=== PATIENT | female | born 1980 | race African-American/Black ===

== ENCOUNTER 2016-10-07 18:29 | Emergency (ER) | payer MEDICARE, OTHER ==
[~2016-10-07] VITALS: Ht 180.3 cm; Wt 135.9 kg
[~2016-10-07 18:29] MED LIST: CYCL1TAB29 PO
[2016-10-07 18:32] VITALS: BP 119/83; PULSE 85; RESP 20; TEMP 98.4; O2SAT 97
--- NOTE | 2016-10-07 23:32 | PD ---
HPI Chief Complaint: Bioinformaticist Problem/Complaint Time Seen by Provider: 23:21 Travel History International Travel<30 days: No Contact w/Intl Traveler<30days: No Traveled to known affect area: No History of Present Illness HPI 36-year-old black female presents to emergency department complaining of razor burn to her vaginal area. She states that the area has become increasingly red , tender and swollen. She has used multiple [id number] preparations without relief. She states that this is even cause her to have some dysuria. She also goes on to state that she has had cold symptoms which has consisted of fever and chills, congestion, myalgias, arthralgias and general malaise. She states that her last menstrual. Was only 4 days and very light. She is concerned that she may be . She states that she has had a tubal ligation in the past but since then she has had an ectopic followed by a normal . She denies any vaginal discharge. 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 ) Musculoskeletal: Yes (FIBROMYALGIA) Tetanus Vaccination: < 5 Years ?: Not LMP: 08/2016 : 8 Para: 7 Miscarriage: 0 : 0 Ectopic : Yes Tubal Ligation: Yes Past Surgical History Narrative Surgical Appendectomy, Cholecystectomy, tubal ligation Appendectomy: Yes Cholecystectomy: Yes Oral Surgery: Yes Pacemaker: No Social History Alcohol Use: Yes (OCCASIONALLY) Tobacco Use: Yes (1/2 PPD) Substance Use: No Allergies-Medications (Allergen,Severity, Reaction): Coded Allergies: Ibuprofen (Verified Adverse Reaction, Severe, NOT ALLOWED DUE TO KIDNEY FUNCTION, 09/03/16) "NOT ALLOWED TO TAKE DUE TO KIDNEY FUNCTION" Reported Meds & Prescriptions Reported Meds & Active Scripts Active Hydrocortisone Topical 2.5% Oint 1 Applic TOPICAL TID Bactrim DS (Sulfamethoxazole-Trimethoprim) 800-160 Mg Tab 1 Tab PO BID Flexeril (Cyclobenzaprine HCl) 10 Mg Tab 10 Mg PO TID PRN Reported Ambien (Zolpidem Tartrate) 5 Mg Tab 5 Mg PO HS PRN Trazodone (Trazodone HCl) 50 Mg Tab 50 Mg PO HS Cymbalta DR (Duloxetine HCl) 20 Mg Capdr 20 Mg PO DAILY Plaquenil (Hydroxychloroquine Sulfate) 200 Mg Tab 200 Mg PO BID Take with food Tizanidine (Tizanidine HCl) 2 Mg Tab 2 Mg PO TID Diclofenac Sodium DR (Diclofenac Sodium) 25 Mg Tabdr 25 Mg PO TID Gabapentin 300 Mg Cap 300 Mg PO BID Review of Systems Except as stated in HPI: all other systems reviewed are Neg Physical Exam Narrative GENERAL: Well-developed, well-nourished in no acute distress. Nontoxic appearing. The patient is examined with the nurse present. HEAD: Normocephalic, atraumatic. EYES: Pupils equal round and reactive. Extraocular motions intact. No scleral icterus. No injection or drainage. ENT: TMs clear without erythema. The external auditory canals clear. Nose: clear . Posterior pharynx is pink and moist. No tonsillar edema or exudate. Uvula midline. Airway patent. NECK: Trachea midline.Supple, nontender, moves head freely. No central bony tenderness or spasm. CARDIOVASCULAR: Regular rate and rhythm without murmurs, gallops, or rubs. RESPIRATORY: Clear to auscultation. Breath sounds equal bilaterally. No wheezes , rales, or rhonchi. GASTROINTESTINAL: Abdomen soft, non-tender, nondistended. No hepato-splenomegaly , or palpable masses. No guarding. EXTREMITIES: No clubbing, cyanosis, or edema. No joint tenderness, effusion, or edema noted. BACK: Nontender without deformity or crepitance. No flank tenderness. : The patient has irritation, erythema and mild edema of the labia majora and perineal region. No discharge. No vesicles or blistering. Data Data Last Documented VS Vital Signs Date Time Temp Pulse Resp B/P Pulse Ox O2 Delivery O2 Flow Rate FiO2 10/07/16 18:32 98.4 85 20 119/83 97 Room Air Orders Ed Urine Pregnancytest Poc (10/07/16 23:17) Sulfamet-Trimeth Ds 800-160 Mg (Bactrim (10/08/16 00:00) MDM Medical Decision Making Medical Screen Exam Complete: Yes Emergency Medical Condition: Yes Medical Record Reviewed: Yes Interpretation(s) Patient's urine icon is negative Differential Diagnosis Differential diagnoses: Herpes, abrasion, cellulitis, contact dermatitis, URI, bronchitis, UTI, influenza Narrative Course Patient has localizing irritation to the perineal region and labia majora. She' ll be placed on Bactrim DS, 2% hydrocortisone cream and she is advised to use [id number] Vagisil. This is an influenza-like illness, contact dermatitis Diagnosis Primary Impression: Influenza-like illness Additional Impression: Contact dermatitis Qualified Code: L25.9 - Contact dermatitis, unspecified contact dermatitis type, unspecified trigger Patient Instructions: General Instructions Additional Instructions: Rest. Wash the area with soap and water twice daily. Tylenol for fever or pain. Benadryl 50 mg every 4-6 hours for the next 2-4 days. Bactrim DS, hydrocortisone cream. Use [id number] VAGASIL 4 times daily. Follow-up with your doctor in the next 2 days for recheck. Med/Other Pt SpecificInfo: Prescription(s) given, Wound Care Scripts Hydrocortisone Topical 2.5% Oint1 Applic TOPICAL TID #15 GM Ref 0 Prov:Ortiz Cullen MD 10/07/16 Sulfamethoxazole-Trimethoprim (Bactrim DS)800-160 Mg Tab1 Tab PO BID #14 TAB Prov:Ortiz Cullen MD 10/07/16 Disposition: 01 DISCHARGE HOME Condition: Stable Oren Wang Oct 07, 2016 23:32
[2016-10-07] MEDS ORDERED: HYDR2.5O TOPICAL (23:33)
[2016-10-07] MEDS ORDERED: BACT800T5 PO (23:33)
[2016-10-07] MEDS ORDERED: DICL25 PO (23:54)
[2016-10-07] MEDS ORDERED: GABA300C5 PO (23:54)
[2016-10-07] MEDS ORDERED: PLAQ200T PO (23:54)
[2016-10-07] MEDS ORDERED: TIZA2TAB PO (23:54)
[2016-10-07] MEDS ORDERED: DULO20 PO (23:54)
[2016-10-07] MEDS ORDERED: AMBI5TAB PO (23:54)
[2016-10-07] MEDS ORDERED: TRAZ50TA12 PO (23:54)
[2016-10-08] MEDS ORDERED: SULFAMETHOXAZOLE-TRIMETHOPRIM DS 800-160 MG TAB PO ONE
[2016-10-08] MEDS ORDERED: diphenhydrAMINE HCL 50 MG CAP PO ONE (00:15)
== END 2016-10-08 00:32 | disposition home or self-care (01) ==
LOC: NEPB 18:29
DX: L25.9 Unspecified contact dermatitis, unspecified cause (principal); R50.9 Fever, unspecified; R30.0 Dysuria; M79.1 Myalgia; J45.909 Unspecified asthma, uncomplicated; M32.9 Systemic lupus erythematosus, unspecified; F17.210 Nicotine dependence, cigarettes, uncomplicated
CPT/HCPCS: 84703; 99283; Q0163

== ENCOUNTER 2016-12-16 12:21 | Emergency (ER) | payer MEDICARE, OTHER ==
[~2016-12-16] VITALS: Ht 180.3 cm; Wt 128.0 kg
[~2016-12-16 12:21] MED LIST changes: +AMBI5TAB PO; +BACT800T5 PO; +DICL25 PO; +DULO20 PO; +GABA300C5 PO; +HYDR2.5O TOPICAL; +PLAQ200T PO; +TIZA2TAB PO; +TRAZ50TA12 PO
[2016-12-16 12:23] VITALS: BP 114/70; PULSE 78; RESP 20; TEMP 98.1; O2SAT 100
--- NOTE | 2016-12-16 13:21 | PD ---
Physical Exam Date Seen by Provider: Dec 16, 2016 Time Seen by Provider: 13:19 Narrative 36 YOBF SLIP AND FALL SAT AT A BAR. H/O LUPUS . PAIN IN L KNEE AND BACK. NO LOC. NO NECK OR BACK PAIN. VSS. AWAITING BED PLACEMENT. Data Data Last Documented VS Vital Signs Date Time Temp Pulse Resp B/P Pulse Ox O2 Delivery O2 Flow Rate FiO2 12/16/16 12:23 98.1 78 20 114/70 100 Room Air [facility] Medical Record Reviewed: Yes Supervised Visit with BOGDAN: Yes Oren Wang Dec 16, 2016 13:21
--- NOTE | 2016-12-16 14:06 | PD ---
HPI Chief Complaint: Musculoskeletal Complaint Time Seen by Provider: 14:05 Travel History International Travel<30 days: No Contact w/Intl Traveler<30days: No Traveled to known affect area: No History of Present Illness HPI 36-year-old female presents emergency Department with complaint of left knee pain and low back pain after a slip and fall on Friday while at the bar. Denies hitting her head or loss of consciousness. Has been ambulatory on the affected extremity since the fall. Denies encopresis, incontinence, saddle anesthesias. Denies paresthesias, loss of sensation, decreased range of motion , decreased strength to bilateral lower extremities. Denies fever, chills, nausea, vomiting, abdominal pain, change in urine or stool. Has history of chronic back pain. Is requesting injections for her back pain. Has taken Percocet with no minimal relief of symptoms. Has history of lupus and asthma. Allergies to ibuprofen. No other modifying factors or associated signs and symptoms. PFSH Past Medical History Arthritis: Yes (RHEUMATOID ARTHRITIS) Asthma: Yes Autoimmune Disease: Yes (LUPUS) Anxiety: Yes Depression: Yes Diminished Hearing: No Fibromyalgia: Yes Genitourinary: Yes (KIDNEY DAMAGE FROM LAST ) Musculoskeletal: Yes (FIBROMYALGIA) : 8 Para: 7 Miscarriage: 0 : 0 Ectopic : Yes Tubal Ligation: Yes Past Surgical History Appendectomy: Yes Cholecystectomy: Yes Oral Surgery: Yes Pacemaker: No Social History Alcohol Use: Yes (OCCASIONALLY) Tobacco Use: Yes (1/2 PPD) Substance Use: No Allergies-Medications (Allergen,Severity, Reaction): Coded Allergies: Ibuprofen (Verified Adverse Reaction, Severe, NOT ALLOWED DUE TO KIDNEY FUNCTION, 12/16/16) "NOT ALLOWED TO TAKE DUE TO KIDNEY FUNCTION" Reported Meds & Prescriptions Reported Meds & Active Scripts Active Acetaminophen 500 Mg Tab 500 Mg PO Q6H PRN Hydrocortisone Topical 2.5% Oint 1 Applic TOPICAL TID Bactrim DS (Sulfamethoxazole-Trimethoprim) 800-160 Mg Tab 1 Tab PO BID Flexeril (Cyclobenzaprine HCl) 10 Mg Tab 10 Mg PO TID PRN Reported Ambien (Zolpidem Tartrate) 5 Mg Tab 5 Mg PO HS PRN Trazodone (Trazodone HCl) 50 Mg Tab 50 Mg PO HS Cymbalta DR (Duloxetine HCl) 20 Mg Capdr 20 Mg PO DAILY Plaquenil (Hydroxychloroquine Sulfate) 200 Mg Tab 200 Mg PO BID Take with food Tizanidine (Tizanidine HCl) 2 Mg Tab 2 Mg PO TID Diclofenac Sodium DR (Diclofenac Sodium) 25 Mg Tabdr 25 Mg PO TID Gabapentin 300 Mg Cap 300 Mg PO BID Review of Systems Except as stated in HPI: all other systems reviewed are Neg Physical Exam Narrative GENERAL: Well-nourished, well-developed female patient, in no acute distress SKIN: Warm and dry. HEAD: Atraumatic. Normocephalic. EYES: Pupils equal and round. No scleral icterus. No injection or drainage. ENT: Mucosa pink and moist. Airway patent. NECK: Trachea midline. CARDIOVASCULAR: Regular rate. RESPIRATORY: No accessory muscle use. GASTROINTESTINAL: Obese. MUSCULOSKELETAL: Left knee is without erythema; with mild edema and ecchymosis noted to the anterior aspect; with tenderness on palpation; with full range of motion to 90; joint stable with negative drawer test; no obvious deformities. Left lower extremity supple and non-tense with 2+ pedal pulses and sensory intact and without erythema or edema. Bilateral lower extremities supple and non-tense with 2+ pedal pulses and sensory intact; with full range of motion and 5/5 strength. Active dorsiflexion and extension of bilateral feet. Bilateral straight leg raise is negative for low back pain. Ambulatory in the room with normal gait. Sitting up in bed at 90. No obvious deformities. No clubbing. No cyanosis. No edema. BACK: No midline point tenderness on palpation of the lumbar spine. Tenderness on palpation of bilateral iliosacral area. No obvious deformities. NEUROLOGICAL: Awake and alert. Oriented 3. No obvious cranial nerve deficits. Motor grossly within normal limits. Normal speech. Moves all extremities. 5/5 strength to all extremities. Sensory intact. PSYCHIATRIC: Appropriate mood and affect; insight and judgment normal. Data Data Last Documented VS Vital Signs Date Time Temp Pulse Resp B/P Pulse Ox O2 Delivery O2 Flow Rate FiO2 12/16/16 12:23 98.1 78 20 114/70 100 Room Air Orders Knee, Complete (4vws) (12/16/16 14:04) Ketorolac Inj (Toradol Inj) (12/16/16 14:15) Orphenadrine Inj (Norflex Inj) (12/16/16 14:15) Crutches (12/16/16 16:13) Splint Or Brace Apply/Monitor (12/16/16 16:13) MDM Medical Decision Making Medical Screen Exam Complete: Yes Emergency Medical Condition: Yes Medical Record Reviewed: Yes Differential Diagnosis Fall, low back strain, acute exacerbation of chronic low back pain, knee contusion, patellar fracture Narrative Course 36-year-old female with left knee injury and low back strain after a mechanical slip and fall on Friday. Denies hitting her head or loss of consciousness. Patient requesting injections for low back pain. She has history of chronic back pain. Toradol and Norflex ordered. Left knee x-ray ordered. 1606: Left knee x-ray concludes: Knee X-Ray 12/16/16 1404 Signed Impressions: Service Date/Time: Friday, December 16, 2016 14:38 - CONCLUSION: 1. Small, well-corticated bone fragment along the anterior aspect of the tibia adjacent to the knee joint suggesting old avulsion. Hi Steinberg MD Patient has no tenderness over the anterior aspect of the tibia and there is no clinical correlation to x-ray findings. Altaf bandage applied to the left knee and crutches provided for support. Instructed patient to follow up with orthopedics. Patient verbalizes understanding and agreement with treatment plan. Patient is medically cleared and stable for discharge. Discussed reasons to return to the emergency department. Instructed patient to follow up with primary care provider. Patient agrees with treatment plan. The patients vital signs are stable and the patient is stable for outpatient follow-up and treatment. Patient discharged home, stable and in no acute distress. Diagnosis Primary Impression: Low back strain Qualified Code: S39.012A - Low back strain, initial encounter Additional Impression: Contusion of left knee Qualified Code: S80.02XA - Contusion of left knee, initial encounter Referrals: Orthopedist Primary Care Physician Patient Instructions: Acute Low Back Pain (ED), Contusion in Adults (ED), General Instructions, Knee Pain (ED), Low Back Strain (ED) Departure Forms: Tests/Procedures, Work Release Enter return to work date: Dec 18, 2016 Additional Instructions: Tylenol or ibuprofen as directed and as needed to reduce pain Robaxin as prescribed for muscle spasms Get adequate rest Ice and/or heating pad to affected area to reduce pain Avoid aggravating activity; increase activity as tolerated Follow-up with primary care provider Return to the emergency department immediately with worsening symptoms Tylenol or ibuprofen as needed and as directed to reduce pain and inflammation Rest, ice, compress, and elevate extremity to decrease pain and inflammation Knee Brace for support Crutches for support Avoid aggravating activity; increase activity as tolerated Follow-up with primary care provider Return to the emergency department immediately with worsening symptoms Med/Other Pt SpecificInfo: Prescription(s) given Scripts Acetaminophen 500 Mg [id number] Mg PO Q6H PRN (PAIN SCALE 1 TO 10) #20 TAB Ref 0 Prov:Maria L Hinds 12/16/16 Disposition: 01 DISCHARGE HOME Condition: Stable Maria L Hinds Dec 16, 2016 14:06
[2016-12-16] MEDS ORDERED: ORPHENADRINE INJ 60 MG/2 ML AMP IM ONE (14:15)
[2016-12-16] MEDS ORDERED: KETOROLAC TROMETHAMINE 60 MG/2 ML (IM) VIAL IM ONE (14:15)
--- NOTE | 2016-12-16 15:50 | RADRPT ---
EXAM DATE/TIME: 12/16/2016 14:38 [facility] COMPARISON: SPINE LUMBAR COMPLETE W/OBLIQ, July 22, 2015, 10:30. INDICATIONS : Fell 2 night's ago at a night club. MEDICAL HISTORY : None. SURGICAL HISTORY : None. ENCOUNTER: Initial ACUITY: 2 days PAIN SCORE: 8/10 LOCATION: Left knee FINDINGS: There is a small well-corticated bone fragment seen at the anterior aspect of the tibia which is prob ably old. Patient should be examined to ensure this is not a direct site of pain as this could repres ent an avulsion but again, the well-corticated nature of this would suggest it is old. The remainder the osseous structures are intact. There is no significant joint effusion. CONCLUSION: 1. Small, well-corticated bone fragment along the anterior aspect of the tibia adjacent to the knee j oint suggesting old avulsion. Hi Steinberg MD on December 16, 2016 at 15:47 Board Certified Radiologist. This report was verified electronically.
[2016-12-16] MEDS ORDERED: ACET500T3 PO (16:13)
== END 2016-12-16 16:24 | disposition home or self-care (01) ==
LOC: NETRI 12:21
DX: S39.012A Strain of muscle, fascia and tendon of lower back, initial encounter (principal); S80.02XA Contusion of left knee, initial encounter; W01.0XXA Fall on same level from slipping, tripping and stumbling without subsequent striking against object, initial encounter; Y92.89 Other specified places as the place of occurrence of the external cause
CPT/HCPCS: 73564; 96372; 99283; E0113; J1885

== ENCOUNTER 2016-12-22 00:39 | Emergency (ER) | payer MEDICARE, OTHER ==
[~2016-12-22] VITALS: Ht 180.3 cm; Wt 130.0 kg
[~2016-12-22 00:39] MED LIST changes: +ACET500T3 PO
[2016-12-22 00:41] VITALS: BP 129/85; PULSE 56; RESP 18; TEMP 98.1; O2SAT 100
[2016-12-22] MEDS ORDERED: SODIUM CHLORIDE 0.9% FLUSH 10 ML FLUSH IV FLUSH PRN ×2 (01:15→01:45)
[2016-12-22 01:34] LABS: AUTOMATED NEUTROPHIL # 2.2 TH/MM3 (1.8-7.7); BASOPHIL % 0.7 % (0.0-2.0); EOSINOPHIL # 0.4 TH/MM3 (0-0.4); EOSINOPHIL % 6.4 % (0.0-4.0); HEMATOCRIT 31.5 % (35.0-46.0); HEMO FLAGS DIFF FINAL; LYMPH % 49.3 % (9.0-44.0); LYMPHOCYTE # 2.9 TH/MM3 (1.0-4.8); MEAN CELL VOLUME 79.4 FL (80.0-100.0); MEAN CORPUSCULAR HGB CONC 32.8 % (32.0-36.0); MONO % 6.9 % (0.0-8.0); NEUT % 36.7 % (16.0-70.0); PLATELET COUNT 321 TH/MM3 (150-450); RED BLOOD COUNT 3.96 MIL/MM3 (4.00-5.30); RED CELL DISTRIBUTION WIDTH 16.5 % (11.6-17.2); WHITE BLOOD COUNT 5.9 TH/MM3 (4.0-11.0)
[2016-12-22 01:35] LABS: BACTERIA, URINE RARE /hpf; BLOOD, URINE NEG (NEG); COMMENT (UR) CULT NOT INDICATED; CULTURE IF INDICATED CULT NOT INDICATED; GLUCOSE,URINE NEG (NEG); KETONE, URINE NEG (NEG); MUCUS URINE FEW /lpf (OCC); NITRITE,URINE NEG (NEG); SQUAMOUS EPITHELIAL CELL URINE 9 /hpf (0-5); URINE COLOR YELLOW (YELLW/STRAW)
--- NOTE | 2016-12-22 01:41 | PD ---
HPI Chief Complaint: Abdominal Pain Time Seen by Provider: 01:21 Travel History International Travel<30 days: No Contact w/Intl Traveler<30days: No Traveled to known affect area: No History of Present Illness HPI So 36 year-old woman who presents to the emergency department complaining of right upper quadrant abdominal pain 4 days. She did feel like when she had gallbladder problems before. Initially she had some nausea vomiting but none now. She is no aggravating or alleviating factors. Pains are not affected by eating. She's never had gastritis or ulcer disease problems in the past. No urinary changes. No change in her vomitus. No chest pain or trouble breathing. No history of kidney stones. History Past Medical History Narrative Medical Lupus Rheumatoid arthritis Degenerative disc disease "Damaged kidneys" Anxiety and depression LMP: 12/02/16 : 8 Para: 7 Social History Alcohol Use: Yes (OCCASIONALLY) Tobacco Use: Yes (1/2 PPD) Allergies-Medications (Allergen,Severity, Reaction): Coded Allergies: Ibuprofen (Verified Adverse Reaction, Severe, NOT ALLOWED DUE TO KIDNEY FUNCTION, 12/22/16) "NOT ALLOWED TO TAKE DUE TO KIDNEY FUNCTION" Reported Meds & Prescriptions Reported Meds & Active Scripts Active Acetaminophen 500 Mg Tab 500 Mg PO Q6H PRN Hydrocortisone Topical 2.5% Oint 1 Applic TOPICAL TID Bactrim DS (Sulfamethoxazole-Trimethoprim) 800-160 Mg Tab 1 Tab PO BID Flexeril (Cyclobenzaprine HCl) 10 Mg Tab 10 Mg PO TID PRN Reported Ambien (Zolpidem Tartrate) 5 Mg Tab 5 Mg PO HS PRN Trazodone (Trazodone HCl) 50 Mg Tab 50 Mg PO HS Cymbalta DR (Duloxetine HCl) 20 Mg Capdr 20 Mg PO DAILY Plaquenil (Hydroxychloroquine Sulfate) 200 Mg Tab 200 Mg PO BID Take with food Tizanidine (Tizanidine HCl) 2 Mg Tab 2 Mg PO TID Diclofenac Sodium DR (Diclofenac Sodium) 25 Mg Tabdr 25 Mg PO TID Gabapentin 300 Mg Cap 300 Mg PO BID Review of Systems Except as stated in HPI: all other systems reviewed are Neg Physical Exam Narrative GENERAL: Well-appearing 36 year-old woman, no acute distress. SKIN: Focused skin assessment warm/dry. HEAD: Atraumatic. Normocephalic. CARDIOVASCULAR: Regular rate and rhythm. No murmur appreciated. RESPIRATORY: No accessory muscle use. Clear to auscultation. Breath sounds equal bilaterally. GASTROINTESTINAL: Abdomen soft, non-tender, nondistended. Hepatic and splenic margins not palpable. MUSCULOSKELETAL: No obvious deformities. No edema. NEUROLOGICAL: Awake and alert. No obvious cranial nerve deficits. Motor grossly within normal limits. Normal speech. PSYCHIATRIC: Appropriate mood and affect; insight and judgment normal. Data Data Last Documented VS Vital Signs Date Time Temp Pulse Resp B/P Pulse Ox O2 Delivery O2 Flow Rate FiO2 12/22/16 00:41 98.1 56 18 129/85 100 Room Air Orders Complete Blood Count With Diff (12/22/16 01:07) Comprehensive Metabolic Panel (12/22/16 01:07) Lipase (12/22/16 01:07) Urinalysis - C+S If Indicated (12/22/16 01:07) Iv Access Insert/Monitor (12/22/16 01:07) NPO (12/22/16 01:07) Sodium Chloride 0.9% Flush (Ns Flush) (12/22/16 01:15) Ed Urine Pregnancytest Poc (12/22/16 01:07) Ct Abd/Pel W/O Iv Contrast (12/22/16 01:32) Ecg Monitoring (12/22/16 01:32) Oximetry (12/22/16 01:32) Sodium Chloride 0.9% Flush (Ns Flush) (12/22/16 01:45) Sodium Chlor 0.9% 1000 Ml Inj (Ns 1000 M (12/22/16 01:45) Ondansetron Inj (Zofran Inj) (12/22/16 01:45) Acetaminophen (Tylenol) (12/22/16 01:45) Labs Laboratory Tests Test 12/22/16 12/22/16 01:10 01:15 Urine Color YELLOW Urine Turbidity HAZY Urine pH 6.0 Urine Specific [place] 1.016 Urine Protein NEG mg/dL Urine Glucose (UA) NEG mg/dL Urine Ketones NEG mg/dL Urine Occult Blood NEG Urine Nitrite NEG Urine Bilirubin NEG Urine Urobilinogen 2.0 MG/DL Urine Leukocyte Esterase TRACE Urine RBC 1 /hpf Urine WBC 4 /hpf Urine Squamous Epithelial 9 /hpf Cells Urine Bacteria RARE /hpf Urine Mucus FEW /lpf Microscopic Urinalysis Comment CULT NOT INDICATED White Blood Count 5.9 TH/MM3 Red Blood Count 3.96 MIL/MM3 Hemoglobin 10.3 GM/DL Hematocrit 31.5 % Mean Corpuscular Volume 79.4 FL Mean Corpuscular Hemoglobin 26.0 PG Mean Corpuscular Hemoglobin 32.8 % Concent Red Cell Distribution Width 16.5 % Platelet Count 321 TH/MM3 Mean Platelet Volume 7.5 FL Neutrophils (%) (Auto) 36.7 % Lymphocytes (%) (Auto) 49.3 % Monocytes (%) (Auto) 6.9 % Eosinophils (%) (Auto) 6.4 % Basophils (%) (Auto) 0.7 % Neutrophils # (Auto) 2.2 TH/MM3 Lymphocytes # (Auto) 2.9 TH/MM3 Monocytes # (Auto) 0.4 TH/MM3 Eosinophils # (Auto) 0.4 TH/MM3 Basophils # (Auto) 0.0 TH/MM3 CBC Comment DIFF FINAL Differential Comment Sodium Level 139 MEQ/L Potassium Level 3.4 MEQ/L Chloride Level 105 MEQ/L Carbon Dioxide Level 28.5 MEQ/L Anion Gap 6 MEQ/L Blood Urea Nitrogen 7 MG/DL Creatinine 1.12 MG/DL Estimat Glomerular Filtration 66 ML/MIN Rate Random Glucose 87 MG/DL Calcium Level 8.7 MG/DL Total Bilirubin 0.2 MG/DL Aspartate Amino Transf 23 U/L (AST/SGOT) Alanine Aminotransferase 20 U/L (ALT/SGPT) Alkaline Phosphatase 61 U/L Total Protein 8.1 GM/DL Albumin 3.3 GM/DL Lipase 121 U/L [facility] Medical Decision Making Medical Screen Exam Complete: Yes Emergency Medical Condition: Yes Interpretation(s) LABS: CBC is remarkable for mild anemia. CMP is unremarkable. Lipase is normal. UA is unremarkable. CT abdomen and pelvis: Supple suspected 3 cm mass in the left over the liver. Nonspecific on a noncontrast CT examination. Appears to demonstrate represent a cyst. Could represent hemangioma or other hepatic mass. Suspected renal cyst. Degenerative change. Differential Diagnosis Hepatobiliary disease, pancreatitis, renal lithiasis, sphincter of oddi dysfunction, choledocholithiasis, other Narrative Course Medical decision making 36 year-old woman, status post cholecystectomy, now with right upper quadrant abdominal pain. She looks generally well. She has some tenderness. Renal lithiasis seems less likely. Possible gastritis. Possible clinical lithiasis or biliary obstruction. We'll check labs, CT, reassess. Likely discharge. Diagnosis Primary Impression: Abdominal pain Additional Impression: Liver mass, left lobe Additional Instructions: Take ranitidine as prescribed. Follow-up with her primary doctor in the next 2-3 days. You need follow-up regarding abnormal masses seen on her CT scan in the left lobar your liver. This requires follow-up. Return to the emergency department for any worsening abdominal pain, high fevers , bloody diarrhea, or any other new or worsening symptoms. Med/Other Pt SpecificInfo: Prescription(s) given Scripts Ranitidine 150 Mg [id number] Mg PO BID #60 CAP Prov:Raphael Mariee MD 12/22/16 Disposition: 01 DISCHARGE HOME Condition: Stable Raphael Mariee MD Dec 22, 2016 01:41
[2016-12-22] MEDS ORDERED: ONDANSETRON HCL 4 MG/2 ML VIAL IV ONE (01:45)
[2016-12-22] MEDS ORDERED: ACETAMINOPHEN 500 MG CPLT PO ONE (01:45)
[2016-12-22] MEDS ORDERED: SODIUM CHLOR 0.9% 1000 ML INJ 1,000 ML IV ONE (01:45)
[2016-12-22 01:47] LABS: ALT (GPT) 20 U/L (10-53); ANION GAP 6 MEQ/L (5-15); AST (GOT) 23 U/L (15-37); BICARBONATE 28.5 MEQ/L (21.0-32.0); BLOOD UREA NITROGEN 7 MG/DL (7-18); CHLORIDE 105 MEQ/L (98-107); GLOMERULAR FILTRATION RATE 66 ML/MIN (>89); POTASSIUM 3.4 MEQ/L (3.5-5.1); SODIUM (NA) 139 MEQ/L (136-145)
[2016-12-22 01:50] LABS: ALKALINE PHOSPHATASE 61 U/L (45-117); TOTAL BILIRUBIN ADULT 0.2 MG/DL (0.2-1.0)
--- NOTE | 2016-12-22 02:34 | RADRPT ---
EXAM DATE/TIME: 12/22/2016 01:40 [facility] COMPARISON: No previous studies available for comparison. INDICATIONS : Right sided abdominal and back pain x5 days. ORAL CONTRAST: No oral contrast ingested. RADIATION DOSE: 12.86 CTDIvol (mGy) MEDICAL HISTORY : None SURGICAL HISTORY : Appendectomy. Cholecystectomy.Tubal ligation. ENCOUNTER: Initial ACUITY: 4 - 6 days PAIN SCALE: 6/10 LOCATION: Right abdomen. TECHNIQUE: Volumetric scanning of the abdomen and pelvis was performed. Using automated exposure control and ad justment of the mA and/or kV according to patient size, radiation dose was kept as low as reasonably achievable to obtain optimal diagnostic quality images. FINDINGS: LOWER LUNGS: The visualized lower lungs are clear. LIVER: There is a questionable 3.5 or hypodense mass at the lateral segment left lobe liver. Focal Homogeneo us density without lesion. There is no dilation of the biliary tree. The patient is status post chol ecystectomy. SPLEEN: Normal size without lesion. PANCREAS: Within normal limits. KIDNEYS: Normal in size and shape. There is no stone, or hydronephrosis. There is a 3 cm mass in the posterio r mid left kidney and a 2.4 cm mass at the anterolateral right mid kidney. These are nonspecific on t his noncontrast CT examination. They likely represent cysts. ADRENAL GLANDS: Within normal limits. VASCULAR: There is no aortic aneurysm. BOWEL/MESENTERY: The stomach, small bowel, and colon demonstrate no acute abnormality. There is no free intraperitone al air or fluid. ABDOMINAL WALL: Within normal limits. RETROPERITONEUM: There is no lymphadenopathy. BLADDER: No wall thickening or mass. REPRODUCTIVE: Within normal limits. INGUINAL: There is no lymphadenopathy or hernia. MUSCULOSKELETAL: There is degenerative change at the L5-S1 level. There are transitional changes at S1. CONCLUSION: 1. Subtle suspected 3 cm mass in the left lobe of the liver. This is nonspecific on this noncontrast CT examination. It appears too dense to represent a cyst. It still could represent a hemangioma or ot her hepatic mass. 2. Suspected renal cysts. 3. Degenerative change at the the lower lumbar spine. Dick Walters MD on December 22, 2016 at 2:23 Board Certified Radiologist. This report was verified electronically.
[2016-12-22] MEDS ORDERED: RANI150C PO (02:40)
[2016-12-22] MEDS ORDERED: LIDOCAINE VISCOUS 2% SOLN 15 ML UDC PO ONE (02:45)
[2016-12-22] MEDS ORDERED: ALUMINUM/MAGNESIUM/SIMETH 30 ML CUP PO ONE (02:45)
[2016-12-22] MEDS ORDERED: FAMOTIDINE 20 MG TAB PO ONE (02:45)
== END 2016-12-22 03:20 | disposition home or self-care (01) ==
LOC: NEPC 00:39
DX: R10.11 Right upper quadrant pain (principal); R16.0 Hepatomegaly, not elsewhere classified; M32.9 Systemic lupus erythematosus, unspecified; M06.9 Rheumatoid arthritis, unspecified; F41.9 Anxiety disorder, unspecified; F32.9 Major depressive disorder, single episode, unspecified; F17.200 Nicotine dependence, unspecified, uncomplicated; Z79.899 Other long term (current) drug therapy
CPT/HCPCS: 74176; 80053; 81001; 83690; 84703; 85025; 96361; 96374; 99284; J2405; J7030

== ENCOUNTER 2017-03-27 20:09 | Emergency (ER) | payer MEDICARE, OTHER ==
[~2017-03-27 20:09] MED LIST changes: +RANI150C PO
[2017-03-27 20:13] VITALS: BP 114/69; PULSE 100; RESP 16; TEMP 103.7; O2SAT 99
== END 2017-03-27 22:16 | disposition left against medical advice (07) ==
LOC: NED 20:09
DX: R52 Pain, unspecified (principal); Z53.21 Procedure and treatment not carried out due to patient leaving prior to being seen by health care provider
CPT/HCPCS: 99281

== ENCOUNTER → 2017-06-05 | Day surgery (SDC) | payer OTHER ==
[~2017-06-05] MED LIST changes: +BUPIVACAINE/EPINEPHRINE 0.5% PF 30 ML VIAL INFIL ONE; +LACTATED RINGER'S 1000 ML INJ 1,000 ML ONE; +MEPERIDINE HCL 25 MG/ML VIAL ONE; +MIDAZOLAM HCL 2 MG/2 ML VIAL ONE; +MORPHINE SULFATE 4 MG/ML INJ ONE; +ONDANSETRON HCL 4 MG/2 ML VIAL IV PUSH ONE; +PROPOFOL 200 MG/20 ML AMP IV ONE; +ceFAZolin INJ 1,000 MG VIAL ONE; +oxyCODONE/ACETAMINOPHEN 5 MG/325 MG TAB ONE
--- NOTE | 2017-06-05 22:17 | MP ---
cc: GABRIELLA ASTORGA M.D. 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 PROCEDURE PERFORMED 1. Left knee arthroscopic extensive debridement of plica and chondroplasty patella. 2. Left knee open excision of tibial tubercle ossicle and repair of patella tendon to tibial tubercle using #2 FiberWire through bone. ANESTHESIA General. SURGEON Gabriella Astorga MD OPERATION SUPERVISOR SURGEON KAYDEN Perez ESTIMATED BLOOD LOSS Less than 50 cc. DRAIN None. SPECIMEN Excised bony fragment measured 2.4 x 1.2 x 1 cm was excised. INDICATION Yosef Garza is a 37-year-old female who has had chronic pain and snapping about her left knee. She has giving away associated with this. Workup with MRI scan reveals chondromalacia patella and what appears to be a large medial plica. Plain x-rays reveal a significant bony fragment just superior to the patellar tendon. She has pain in both locations. She has failed conservative measures. The options of treatment were discussed and a detailed informed consent was obtained. The nurse first assist Andriy Will advanced registered nurse practitioner and his skill set was medically necessary for the performance of the operation. PROCEDURE The patient was brought to the operating room. She was placed under general anesthetic. The left lower extremity was draped and prepped in usual sterile fashion. IV antibiotics were given. A time-out was completed. Marcaine with epinephrine was injected, inferolateral portal made. Blunt trocar used to introduce the cannula, made inferomedial portal. Medial compartment showed a normal-appearing meniscus, articular surface. The lateral compartment showed some mild fraying of the meniscus and some chondromalacia on the lateral plateau. The lateral femoral condyle appeared normal. There was some hypertrophic frayed tissue coming from the ACL and towards the lateral meniscus which was debrided with an arthroscopic shaver. There was enlarged hypertrophic medial plica which was debrided and cautery obtained with the use of electrocautery and there was unstable cartilage on the undersurface of the patella, chondromalacia of the patella in a region of 2 x 2 cm and the arthroscopic shaver was used with the blade, 90 degrees effaced the cartilage to smooth and contour this area. Follow-up photograph taken here. Repeat diagnostic arthroscopy revealed no loose bodies. Arthroscopic equipment was removed. Marcaine had been injected about the portals. The palpable tibial tubercle was noted at the anterior aspect of the patellar tendon overlying the tibial tubercle and a horizontal incision was made at this location and taken down to the fascia which was then split and then we could palpate the large ossicle and split this directly over the tibial tubercle. Some of the patellar tendon fibers were not connected to the tibial tubercle. There was a false joint dislocation. The ossicle was excised, the entire fragment and then there was some hypertrophic bone underlying this where the patellar tendon was not attached and this was thoroughly debrided down to bleeding bone and we had a smooth surface of this location. Now we use #2 FiberWire to go through the bone and capture the medial part of the tendon and then in a likewise fashion come across the top and then the lateral part through the bone. We tied this down so we had a solid repair of the patellar tended to the tibial tubercle. Now using absorbable suture #1 Vicryl we did the same maneuver with the suture through the bone and then coming out underneath and then deep to the tendon through the bone and coming out the opposite side and then tying this down this case ___ not very. This gave a very solid repair additionally and then we ran the patellar tendon where it had been split and then proceeded to irrigate out and close the layers with absorbable suture, subcuticular on the skin. Steri-Strips applied. Sterile dressing applied. The patient was awoken and return to the recovery room in stable condition. MD JORDAN Patel/SILVINO /2:13 PM /9:49 PM
== END | disposition home or self-care (01) ==
LOC: ESDC 10:36
PROVIDERS: ATTEND Orthopaedic Surgery Sports Medicine
DX: M22.42 Chondromalacia patellae, left knee (principal); M23.52 Chronic instability of knee, left knee; M67.52 Plica syndrome, left knee
CPT/HCPCS: 01230; 01400; 27360; 29875; J0690; J2175; J2250; J2270; J2405; J3010; J7120